=== PATIENT | female | born 1945 | race Caucasian/White ===

== ENCOUNTER 2016-08-22 15:41 | Emergency (ER) | payer MEDICARE, OTHER ==
[2016-08-22 15:54] VITALS: BP 153/69
--- NOTE | 2016-08-22 16:46 | UC ---
Head Injury HPI - HPI Summary HPI Summary: 1.5 HOURS AGO TRIPPED AND FELL BACKWARD AND HIT HEAD ON SEAT OF CHAIR LACERATION ON BACK OF HEAD. NO LOC. NO HEAD ACHE. NO NECK PAIN. NO N/V. NO BLEEDING FROM NOSE OR EARS. - History Of Current Complaint Chief Complaint: UCLaceration Stated Complaint: HEAD INJURY Time Seen by Provider: 08/22/16 16:23 Hx Obtained From: Patient, Family/Home Service Technician Mechanism Of Injury: TRIPPED AND FELL BACKWARDS; NO HISTORY OF SYNCOPE Onset/Duration: Sudden Onset, Lasting Hours, Still Present Severity Currently: Mild Severity Initially: Mild Character: Dull Aggravating Factor(s): Nothing Alleviating Factor(s): Nothing Associated Signs And Symptoms: Positive: Other - LACERATION POSTERIOR SCALP. Negative: LOC (Time In Secs./Mins/Hrs), LOC Duration Unknown, Confusion, Memory Loss, Seizure, Epistaxis, Dental Malocclusion, Neck Pain, Nausea, Vomiting - Risk Factors SDH Risk Factor: Negative - Allergies/Home Medications Allergies/Adverse Reactions: Allergies Allergy/AdvReac Type Severity Reaction Status Date / Time Cefaclor [From Ceclor] Allergy Severe Airway Verified 08/22/16 15:54 Obstruction Home Medications: Home Medications Supplements* 08/22/16 [History] PMH/Surg Hx/FS Hx/Imm Hx Previously Healthy: Yes Endocrine History Of: Reports: Diabetes Cardiovascular History Of: Reports: Hypertension Cancer History Of: Denies: Breast Cancer - Surgical History Surgical History: Yes Surgery Procedure, Year, and Place: BILAT KNEES REPLACED; right ganglion cyst; ectopic ; tonsils - Family History Known Family History: Positive: None - Social History Occupation: Retired Lives: With Family Alcohol Use: Occasionally Substance Use Type: None Smoking Status (MU): Never Smoked Tobacco Length of Time of Smoking/Using Tobacco: 10 YEARS Have You Smoked in the Last Year: No When Did the Patient Quit Smoking/Using Tobacco: 40+ YEARS - Immunization History Most Recent Influenza Vaccination: fall 2014 Most Recent Tetanus Shot: THINKS <5 YEARS ( OF 08/22/16) Most Recent Pneumonia Vaccination: may 2015 Review of Systems Constitutional: Negative Skin: Other - LACERATION OF POSTERIOR SCALP Eyes: Negative ENT: Negative Respiratory: Negative Cardiovascular: Negative Gastrointestinal: Negative Genitourinary: Negative Motor: Negative Neurovascular: Negative Musculoskeletal: Negative Neurological: Negative Psychological: Negative All Other Systems Reviewed And Are Negative: Yes Physical Exam Triage Information Reviewed: Yes Appearance: Well-Appearing, No Pain Distress, Well-Nourished Vital Signs: Initial Vital Signs Temp 97.9 F 08/22/16 15:50 Pulse 76 08/22/16 15:50 Resp 16 08/22/16 15:50 BP 153/69 08/22/16 15:50 Pulse Ox 98 08/22/16 15:50 Vital Signs Reviewed: Yes ENT: Positive: Other: - NYSTAGMUS NOTED IN LEFT EYE ON CLINICAL EXAM Dental Exam: Normal Neck exam: Normal Neck: Positive: Supple, Nontender, No Lymphadenopathy Respiratory Exam: Normal Respiratory: Positive: Chest non-tender, Lungs clear, Normal breath sounds, No respiratory distress, No accessory muscle use Cardiovascular Exam: Normal Cardiovascular: Positive: RRR, No Murmur, Pulses Normal Abdominal Exam: Normal Abdomen Description: Positive: Nontender, No Organomegaly Musculoskeletal Exam: Normal Musculoskeletal: Positive: Strength Intact, ROM Intact Neurological: Positive: Other: - NYSTAGMUS NOTED WITH LATERAL MOVEMENT OF LEFT EYE Psychological Exam: Normal Skin Exam: Normal Head Injury Course/Dx - Differential Dx/Diagnosis Differential Diagnosis/HQI/PQRI: Concussion Without LOC, Contusion, Intracranial Bleed Provider Diagnoses: HEAD INJURY - Physician Notification/Consults Discussed Patient Care With: DR. MARGO SALEH Time Discussed With Above Provider: 16:30 Instructed by Provider To: MD Will See In ED Discharge - Discharge Plan Condition: Stable Disposition: TRANS HIGHER LVL OF CARE FAC
== END 2016-08-22 16:50 | disposition short-term general hospital (02) ==
LOC: UCEAST 15:41
DX: S09.90XA Unspecified injury of head, initial encounter (principal); S01.01XA Laceration without foreign body of scalp, initial encounter; W18.09XA Striking against other object with subsequent fall, initial encounter; Y93.9 Activity, unspecified; Y92.9 Unspecified place or not applicable; Z88.1 Allergy status to other antibiotic agents; Z96.653 Presence of artificial knee joint, bilateral
CPT/HCPCS: 99212; G0463

== ENCOUNTER 2016-08-22 17:08 | Emergency (ER) | payer MEDICARE, OTHER ==
[2016-08-22 17:31] VITALS: BP 149/55
--- NOTE | 2016-08-22 18:43 | RAD ---
HISTORY: Head laceration, trauma COMPARISONS: None TECHNIQUE: Multiple contiguous axial CT scans were obtained of the head without intravenous contrast. FINDINGS: HEMORRHAGE/INFARCT: There is no hemorrhage or acute infarct. MASSES/SHIFT: There is no mass or shift. EXTRA-AXIAL SPACES: There are no extra-axial fluid collections. SULCI AND VENTRICLES: The sulci and ventricles are normal in size and position for the patient's stated age. CEREBRUM: There are no focal parenchymal abnormalities. BRAINSTEM: There are no focal parenchymal abnormalities. CEREBELLUM: There are no focal parenchymal abnormalities. VESSELS: The vessels are grossly normal. PARANASAL SINUSES: The paranasal sinuses are clear. ORBITS: The orbits are unremarkable. BONES AND SOFT TISSUE: No bone or soft tissue abnormalities are noted. OTHER: None IMPRESSION: NO ACUTE INTRACRANIAL PATHOLOGY.
--- NOTE | 2016-08-22 19:08 | ED ---
Head Injury - HPI Summary HPI Summary: 71 female presents to ED after being seen at urgent care after a head injury that happened earlier this afternoon on 08/22/16. Patient tripped over a stool and hit her head on a desk chair. She sustained a laceration. She did not lose consciousness and remembers the event. No vision changes. Was sent to ED for further imaging. Denies weakness, nausea, vomiting, confusion, headache and problems with gait. Has no pain at this time. - History Of Current Complaint Chief Complaint: EDHeadInjury Stated Complaint: HEAD LACERATION COMMING FROM [facility] Time Seen by Provider: 08/22/16 17:50 Hx Obtained From: Patient Mechanism Of Injury: Direct Blow, Fall From A Standing Position - tripped landing on buttocks hitting head on way down Onset/Duration: Started Hours Ago Onset of Pain: Immediate Severity Currently: Mild Severity Initially: Mild Pain Intensity: 3 Pain Scale Used: 0-10 Numeric Location of Head Injury: Occipital Associated Signs And Symptoms: Headache - had one after incident however does not complain of one now - Allergies/Home Medications Allergies/Adverse Reactions: Allergies Allergy/AdvReac Type Severity Reaction Status Date / Time [facility] [[facility] Allergy Severe Airway Verified 08/22/16 15:54 Obstruction PMH/Surg Hx/FS Hx/Imm Hx Endocrine/Hematology History: Reports: Hx Diabetes Cardiovascular History: Reports: Hx Hypercholesterolemia, Hx Hypertension Respiratory History: Reports: Hx Sleep Apnea - Current CPAP user., Other Respiratory Problems/Disorders - ex-smoker Musculoskeletal History: Reports: Other Musculoskeletal History - s/p bilateral TKA 2010 Denies: Hx Osteoporosis Sensory History: Reports: Hx Contacts or Glasses Opthamlomology History: Reports: Hx Contacts or Glasses - Cancer History Hx Chemotherapy: No Hx Radiation Therapy: No - Surgical History Surgery Procedure, Year, and Place: BILAT KNEES REPLACED; right ganglion cyst; ectopic ; tonsils Infectious Disease History: No Infectious Disease History: Reports: Hx Shingles - 47 yrs ago Denies: Hx Clostridium Difficile, Hx Hepatitis, Hx Human Immunodeficiency Virus (HIV), Hx of Known/Suspected MRSA, Hx Tuberculosis, Hx Known/Suspected VRE , Hx Known/Suspected VRSA, History Other Infectious Disease, Traveled Outside the [place] in Last 30 Days - Family History Known Family History: Positive: None - Social History Alcohol Use: Occasionally Substance Use Type: Reports: None Smoking Status (MU): Never Smoked Tobacco Length of Time of Smoking/Using Tobacco: 10 YEARS Have You Smoked in the Last Year: No Review of Systems Constitutional: Negative Eyes: Negative ENT: Negative Cardiovascular: Negative Respiratory: Negative Gastrointestinal: Negative Genitourinary: Negative Musculoskeletal: Negative Positive: Other - laceration scalp Positive: Headache Psychological: Normal All Other Systems Reviewed And Are Negative: Yes Physical Exam Triage Information Reviewed: Yes Vital Signs On Initial Exam: Initial Vitals Temp Pulse Resp BP Pulse Ox 97.6 F 72 16 149/55 100 08/22/16 17:26 08/22/16 17:26 08/22/16 17:26 08/22/16 17:26 08/22/16 17:26 Vital Signs Reviewed: Yes Appearance: Positive: Well-Appearing, No Pain Distress, Well-Nourished Skin: Positive: Warm, Skin Color Reflects Adequate Perfusion, Dry Head/Face: Positive: Normal Head/Face Inspection, Scalp - laceration right occiptal area about 4 cm long, linear well approximated Eyes: Positive: EOMI - questionable nystagmus noted bilaterally, CLEOPATRA, Conjunctiva Clear ENT: Positive: Normal ENT inspection, Hearing grossly normal, Pharynx normal, TMs normal Neck: Positive: Supple, Nontender Respiratory/Lung Sounds: Positive: Clear to Auscultation, Breath Sounds Present Cardiovascular: Positive: Normal, RRR, Pulses are Symmetrical in both Upper and Lower Extremities Abdomen Description: Positive: Nontender, No Organomegaly, Soft Bowel Sounds: Positive: Present Musculoskeletal: Positive: Normal, Strength/ROM Intact Neurological: Positive: Normal, Sensory/Motor Intact, Alert, Oriented to Person Place, Time, CN Intact II-III, Reflexes Intact, NV Bundle Intact Distally, Normal Gait, Heel to Toe - normal, Finger to Nose - normal, Speech Normal Psychiatric: Positive: Normal Procedures - Laceration/Wound Repair 1 Location: head - occipatl area Description: Linear Irrigated w/ Saline (ccs): 50 Closure: Thicket #__ - 4 Diagnostics - Vital Signs Vital Signs Temp Pulse Resp BP Pulse Ox 08/22/16 17:26 97.6 F 72 16 149/55 100 - Laboratory Lab Statement: Any lab studies that have been ordered have been reviewed, and results considered in the medical decision making process. - CT brain w/o CT Interpretation: No Acute Changes - NO ACUTE INTRACRANIAL PATHOLOGY. CT Interpretation Completed By: Radiologist Head Injury Course/Dx Course Of Treatment: patient is here to have further imaging. CT was obtained and negative. Scalp laceration stapled with 4 berenice. No pain at this time. Aware of worsening symptoms and concussion like symptoms to watch out for. Follow-up with PCP and have stiches removed in ~5 days. - Diagnoses Differential Diagnosis/HQI/PQRI: Cerebral Contusion, Concussion Without LOC, Contusion, Hematoma, Intracranial Bleed, Skull Fracture, Other - laceration Provider Diagnoses: Laceration and contusion of cerebral cortex Discharge - Discharge Plan Condition: Good Disposition: HOME Patient Education Materials: Scalp Contusion in Adults (ED), Laceration (ED), Staple Care (ED) Referrals: Lisa Coats MD [Primary Care Provider] - Additional Instructions: Keep the area completely dry for 24 hours. Then, you can start to gently wash around the staple site 1 to 2 times daily. Wash with cool water and soap. Clean as close to the berenice as you can. DO NOT wash or rub the berenice directly. Dab the site dry. DO NOT rub the area. Avoid using the towel directly on the berenice. See primary care doctor to have berenice removed in the next 5 days. If you develop fever/chills, headache, confusion, or bleeding please return to ED. Take Ibuprofen or Tylenol as needed for pain.
== END 2016-08-22 21:20 | disposition home or self-care (01) ==
LOC: ED 17:08
DX: S01.01XA Laceration without foreign body of scalp, initial encounter (principal); R51 Headache; W19.XXXA Unspecified fall, initial encounter; Y93.9 Activity, unspecified; Y92.9 Unspecified place or not applicable; Y99.9 Unspecified external cause status; S09.90XA Unspecified injury of head, initial encounter; W18.09XA Striking against other object with subsequent fall, initial encounter; Z88.1 Allergy status to other antibiotic agents; Z96.653 Presence of artificial knee joint, bilateral
CPT/HCPCS: 12002; 70450; 99212; 99282; G0463

== ENCOUNTER 2018-07-02 13:37 | Emergency (ER) | payer MEDICARE, OTHER ==
--- NOTE | 2018-07-02 14:45 | UC ---
Hand/Wrist HPI - HPI Summary HPI Summary: right wrist pain began last week without injury--patient fell yesterday landing on wrist wrisr now has worsening pain with extension and flex - History Of Current Complaint Chief Complaint: UCUpperExtremity Stated Complaint: WRIST INJURY Time Seen by Provider: 07/02/18 14:25 Hx Obtained From: Patient ?: No Mechanism Of Injury: fall Onset/Duration: Sudden Onset, Lasting Days - 1, Still Present Severity Initially: Moderate Severity Currently: Moderate Character Of Pain: Throbbing, Stiffness Aggravating Factor(s): Movement, Flexion, Extension Alleviating Factor(s): Rest Associated Signs And Symptoms: Positive: Swelling Related History: Dominant Hand Right - Allergies/Home Medications Allergies/Adverse Reactions: Allergies Allergy/AdvReac Type Severity Reaction Status Date / Time cefaclor [From [facility]] Allergy Difficulty Verified 07/02/18 14:49 Breathing/Wheezing PMH/Surg Hx/FS Hx/Imm Hx Previously Healthy: No Endocrine History: Diabetes Cardiovascular History: Hypertension Psychological History: Depression - Surgical History Surgical History: Yes Surgery Procedure, Year, and Place: BILAT KNEES REPLACED; right ganglion cyst; ectopic ; tonsils - Family History Known Family History: Positive: None - Social History Occupation: Retired Lives: With Family Alcohol Use: Occasionally Substance Use Type: None Smoking Status (MU): Never Smoked Tobacco Length of Time of Smoking/Using Tobacco: 10 YEARS Have You Smoked in the Last Year: No When Did the Patient Quit Smoking/Using Tobacco: 40+ YEARS - Immunization History Most Recent Influenza Vaccination: fall 2014 Most Recent Tetanus Shot: THINKS <5 YEARS ( OF 08/22/16) Most Recent Pneumonia Vaccination: may 2015 Review of Systems All Other Systems Reviewed And Are Negative: Yes Constitutional: Positive: Negative Skin: Positive: Negative Eyes: Positive: Negative ENT: Positive: Negative Respiratory: Positive: Negative Cardiovascular: Positive: Negative Gastrointestinal: Positive: Negative Genitourinary: Positive: Negative Motor: Positive: Negative Neurovascular: Positive: Negative Musculoskeletal: Positive: Negative Neurological: Positive: Negative Psychological: Positive: Negative Is Patient Immunocompromised?: No Physical Exam Triage Information Reviewed: Yes Appearance: Well-Appearing, No Pain Distress, Well-Nourished Vital Signs Reviewed: Yes Eye Exam: Normal Eyes: Positive: Conjunctiva Clear ENT Exam: Normal ENT: Positive: Normal ENT inspection, Hearing grossly normal. Negative: Trismus , Muffled voice, Hoarse voice Dental Exam: Normal Neck exam: Normal Respiratory Exam: Normal Respiratory: Positive: Chest non-tender, No respiratory distress, No accessory muscle use Cardiovascular Exam: Normal Cardiovascular: Positive: Pulses Normal, Brisk Capillary Refill Musculoskeletal Exam: Other Musculoskeletal: Positive: Strength Limited @, ROM Limited @, Edema @ - right wrist Neurological Exam: Normal Neurological: Positive: Alert, Muscle Tone Normal Psychological Exam: Normal Skin Exam: Normal Diagnostics - Radiology No standard instances Radiology Interpretation Completed By: Radiologist - soft tissue swelling, osteoarthritis Hand/Wrist Course/Dx - Course Course Of Treatment: splint, sling, ice, ibuprofen follw with ortho if not perfect in 3-4 days follow blood pressure with pcp - Differential Dx/Diagnosis Provider Diagnosis: Contusion of right wrist, initial encounter, Hypertension, Osteoarthritis Discharge - Sign-Out/Discharge Documenting (check all that apply): Patient Departure All imaging exams completed and their final reports reviewed: Yes - Discharge Plan Condition: Stable Disposition: HOME Patient Education Materials: Ibuprofen (By mouth), Contusion in Adults (ED), Hypertension (ED), R.I.C.E. Treatment (ED) Referrals: Kai Moore MD [Medical Doctor] - 4 Days Wilton Ulloa MD [Primary Care Provider] - 2 Weeks - Billing Disposition and Condition Condition: STABLE Disposition: Home
[2018-07-02 14:48] VITALS: BP 153/71
== END 2018-07-02 15:26 | disposition home or self-care (01) ==
LOC: UCEAST 13:37
DX: S60.211A Contusion of right wrist, initial encounter (principal); I10 Essential (primary) hypertension; M19.90 Unspecified osteoarthritis, unspecified site; E11.9 Type 2 diabetes mellitus without complications; Z88.1 Allergy status to other antibiotic agents; W19.XXXA Unspecified fall, initial encounter; Y92.9 Unspecified place or not applicable
CPT/HCPCS: 99213; G0463

== ENCOUNTER 2019-06-25 10:10 | Emergency (ER) | payer MEDICARE, OTHER ==
--- OUTSIDE RECORDS SUMMARY | 2019-06-25 10:55 | XMS REPORT | Continuity of Care Document ---
:1945 External Reference #:[id number] Author Name Scar Gee M.D. 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 HELPER- Onset: 07/1993 Note: Original study unavailable Family history of malignant neoplasm of Zan Barrientos MD Onset: 2004 gastrointestinal tract Note: brother of colon cancer Diabetes mellitus Zan Barrientos MD Onset: 08/20/2003 Note: visit Hx shows AODM in 2003 Dr Meyers; gestational at age 32 History of adenomatous polyp of colon Zan Barrientos MD Onset: 11/18/2007 Note: 5mm TA in descending Social History Type Date Description Comments Sex Unknown Tobacco Use Start: Unknown Quit in 1975 ETOH Use Rarely consumes wine Recreational Drug Use Denies Drug Use Tobacco Use Start: Unknown End: Patient is a former smoker Unknown Tobacco Use Start: Unknown Heavy tobacco smoker (more than 10 cigarettes/day) Smoking Status Reviewed: 05/29/19 Heavy tobacco smoker (more than 10 cigarettes/day) Exercise Type/Frequency Does not exercise Allergies, Adverse Reactions, Alerts Active Allergies Reaction Severity Comments Date Rebecca Nunez 12/25/2014 Medications Active Medications SIG Qnty Indications Ordering Provider Date Omeprazole 1 by mouth every 30caps Zan Barrientos, 12/16/[address] Fluoxetine HCL 1 by mouth every Other Ordering 12/06/2018 20mg day Provider Tablets Metformin HCL two tabs bid Unknown 12/24/2014 500mg Atorvastatin Calcium 1 by mouth every Unknown 40mg day Tablets Garlic 1 tab by mouth Unknown daily Lisinopril 1 by mouth every Unknown 40mg Tablets day Aspirin Adult Low Dose 1 by mouth every Unknown day 81mg Tablets DR Vipul 1 po qd Unknown Co Q 10 1 by mouth every Unknown 60mg Capsules day Cataplex 2 tablets by Unknown mouth twice daily (sometimes) Vitamin D3 1 po qd Unknown 5000Iu Immunizations Description No Information Available Vital Signs Date Vital Result Comment 05/29/2019 2:44pm Height 62 inches 5'2" Weight 224.00 lb with shoes Heart Rate 76 /min BP Systolic Sitting 108 mmHg Rue large cuff BP Diastolic Sitting 58 mmHg Rue large cuff Respiratory Rate 13 /min BMI (Body Mass Index) 41.0 kg/m2 Ejection Fraction 55-60% ECHO 04/29/2017 12/06/2018 11:17am Height 62 inches 5'2" Weight 228.12 lb Heart Rate 68 /min BP Systolic Sitting 114 mmHg BP Diastolic Sitting 62 mmHg Respiratory Rate 20 /min Body Temperature 97.0 F BMI (Body Mass Index) 41.7 kg/m2 Results Test Acquired Date Facility Test Result H/L Range Note Laboratory test 12/16/2018 [facility] Clotest SEE RESULT [address] [place] [address] [phone] Laboratory test 12/16/2018 [facility] Surgical SEE RESULT [address] [address] [phone] 1 SEE RESULT BELOW Name: GAGE SHERMAN : [address]: Zan Barrientos MD Acct: [id number] Unit: [id number] AGE: 73 Location: ENDO Re12/16/18 SEX: F Status: REG REF SPEC: [id number] LUISITO: 12/16/18 [facility] DR: Zan Barrientos MD REQ: [id number] RECD: 12/16/18 STATUS: MARY TABARES DR: Wilton Ulloa MD PC _ SOURCE: GAS ANTRUM SPDESC: ORDERED: Clotest Procedure Result Reported Site Clotest Final 12/17/18- 0801 ML Clotest Negative * ML - Main Lab . END OF REPORT DEPARTMENT OF PATHOLOGY, [address] [place] [address] Fabrice Fink M.D. Director STEPHANIE # [id number] 2 SEE RESULT BELOW Name: GAGE SHERMAN : [address]: Zan Barrientos MD Acct: [id number] Unit: [id number] AGE: 73 Location: ENDO Re12/16/18 SEX: F Status: DEP REF SPEC: [id number] LUISITO: 12/16/18-6313 [facility] DR: Zan Barrientos MD REQ: [id number] RECD: 12/16/184951 STATUS: NEHAL TABARES DR: Wilton Ulloa MD PC _ ORDERED: LEVEL 4/2, IMMUNO-FIRST ADDENDUM An H. pylori immunohistochemical stain, with appropriately reacting controls , was performed on sections cut from specimen one and is negative for Helicobacter organisms. Addendum Signed (signature on file) Lisa Hoff MD 1034 FINAL DIAGNOSIS 1. Duodenum, third portion, biopsy: -- Ulcerated acutely inflamed small intestinal mucosa. -- No evidence of viral cytopathic effect or parasites; see comment. 2. Stomach, antrum, biopsy: -- Antral and body-type gastric mucosa with reactive chemical gastropathy. -- No evidence of Helicobacter organisms. COMMENT: An H. pylori immunohistochemical stain is pending for specimen 1 and the results will be reported in an addendum. CLINICAL HISTORY Abdominal pain; dysphagia; diet - weight watchers CONTINUED ON NEXT PAGE DEPARTMENT OF PATHOLOGY, [address] [place] [address] Fabrice Fink M.D. Director [facility] # [id number] RUN DATE: 12/21/18 [facility] LAB LIVE PAGE 2 Patient: JOSICAMILLEE Alonzo [id number] (Continued) POST-OPERATIVE DIAGNOSIS (Continued) POST-OPERATIVE DIAGNOSIS EGD: larynx - NGD; esophagus - normal esophagogastric snug at 38 cm; stomach - minimal gastritis antrum biopsy (2) and KIKA test; duodenum - exudate in bulb; small superficial ulcers in third portion; conclusions: gastritis; duodenal ulcers GROSS DESCRIPTION 1. The specimen is received in formalin labeled, Third Portion Duodenum Biopsies, and consists of a 0.8 x 0.4 x 0.2 cm aggregate of mena irregular soft tissue fragments which is submitted entirely in one cassette. 2. The specimen is received in formalin labeled, Gastric Antrum Biopsies, and consists of two mena irregular soft tissue fragments measuring 0.4 x 0.3 x 0.2 cm and 0.6 x 0.3 x 0.1 cm which are submitted entirely in one cassette. Signed by and Reported on: Lisa Hoff MD 12/20/18 1143 END OF REPORT DEPARTMENT OF PATHOLOGY, [address] [place] [address] Fabrice Fink M.D. Director [facility] # [id number] Procedures Date Code Description Status 05/29/2019 95536 EKG Tracing & Interpretation Completed 03/02/2019 346821535 Diabetic Retinal Eye Exam Completed 12/16/2018 21332 Endoscopy Upper GI Biopsy Completed 12/25/2016 [id number] Colonoscopy Completed 11/12/2011 [id number] Colonoscopy Completed 11/11/2007 [id number] Colonoscopy Completed Medical Devices Description No Information Available Encounters Type Date Location Provider Dx Diagnosis Office Visit 12/06/2018 [facility] Ivy Guerrero, R13.10 Dysphagia, 11:00a KIER TENDER unspecified R07.0 Pain in throat K21.0 Gastro-esophageal reflux disease with esophagitis Assessments Date Code Description Provider 05/29/2019 E78.00 Pure hypercholesterolemia, unspecified Scar Gee M.D. 05/29/2019 I34.0 Nonrheumatic mitral (valve) insufficiency Scar Gee M.D. 05/29/2019 I10 Essential (primary) hypertension Scar Gee M.D. 05/29/2019 R94.31 Abnormal electrocardiogram [ECG] [EKG] Scar Gee M.D. 12/16/2018 K26.9 Duodenal ulcer, unsp as acute or chronic, Zan Barrientos MD w/o hemor or perf 12/16/2018 K29.70 Gastritis, unspecified, without bleeding Zan Barrientos MD 12/16/2018 R13.10 Dysphagia, unspecified Zan Barrientos MD 12/06/2018 R13.10 Dysphagia, unspecified Ivy Guerrero NP 12/06/2018 R07.0 Pain in throat Ivy Guerrero, TON 12/06/2018 K21.0 Gastro-esophageal reflux disease with Ivy Guerrero NP esophagitis Plan of Treatment 05/29/2019 - Scar Gee M.D.E78.00 Pure hypercholesterolemia, kvcmerbdzjhO63.0 Nonrheumatic mitral (valve) [id number] Essential (primary ) irafxdejpzgiD23.31 Abnormal electrocardiogram [ECG] [EKG]Follow up:ov 1 year Functional Status Description No Information Available Mental Status Description No Information Available Referrals Description No Information Available
--- NOTE | 2019-06-25 10:58 | UC ---
Complaint Female HPI - HPI Summary HPI Summary: 74 yo female presents with UTI symptoms. She tells me that for the last 2 days has had urinary burning and frequency. Has not had a UTI in many years. Denies fever, chills, back pain, abdominal pain, n/v. - History Of Current Complaint Stated Complaint: URINARY ISSUE Time Seen by Provider: 06/25/19 10:58 Hx Obtained From: Patient Hx Last Menstrual Period: post menopause Onset/Duration: Sudden Onset Timing: Constant Severity Initially: Mild Severity Currently: Moderate Pain Intensity: 4 Pain Scale Used: 0-10 Numeric - Allergies/Home Medications Allergies/Adverse Reactions: Allergies Allergy/AdvReac Type Severity Reaction Status Date / Time cefaclor [From [facility]] Allergy Difficulty Verified 12/07/18 14:10 Breathing/Wheezing PMH/Surg Hx/FS Hx/Imm Hx Endocrine History: Diabetes, Dyslipidemia Cardiovascular History: Hypertension Psychological History: Anxiety, Depression - Surgical History Surgical History: Yes Surgery Procedure, Year, and Place: BILAT KNEES REPLACED; right ganglion cyst; ectopic ; tonsils - Family History Known Family History: Positive: None - Social History Lives: With Family Alcohol Use: Occasionally Substance Use Type: None Smoking Status (MU): Never Smoked Tobacco Length of Time of Smoking/Using Tobacco: 10 YEARS Have You Smoked in the Last Year: No When Did the Patient Quit Smoking/Using Tobacco: 40+ YEARS - Immunization History Most Recent Influenza Vaccination: fall 2014 Most Recent Tetanus Shot: THINKS <5 YEARS ( OF 08/22/16) Most Recent Pneumonia Vaccination: may 2015 Review of Systems All Other Systems Reviewed And Are Negative: No Constitutional: Positive: Negative Skin: Positive: Negative Respiratory: Positive: Negative Cardiovascular: Positive: Negative Genitourinary: Positive: Dysuria Neurological: Positive: Negative Psychological: Positive: Negative Physical Exam - Summary Physical Exam Summary: GENERAL: NAD. WDWN. No pain distress. SKIN: No rashes, sores, lesions, or open wounds. NECK: Supple. Nontender. No lymphadenopathy. CHEST: CTAB. No r/r/w. No accessory muscle use. Breathing comfortably and in no distress. CV: RRR. Pulses intact. Cap refill <2seconds ABDOMEN: Soft. NTTP. No CVA tenderness. Bowel sounds present NEURO: Alert. PSYCH: Age appropriate behavior. Triage Information Reviewed: Yes Vital Signs: Vital Signs: Temp Pulse Resp BP Pulse Ox 98.6 F 75 16 98/72 99 06/25/19 10:58 06/25/19 10:58 06/25/19 10:58 06/25/19 10:58 06/25/19 10:58 Laboratory Tests 06/25/19 11:22 POC Urine Color Yellow POC Urine Clarity Cloudy POC Urine pH 5.5 POC Ur Specif [place] 1.020 POC Urine Protein 1+ A POC Ur Glucose (UA) Negative POC Urine Ketones Negative POC Urine Blood 1+ A POC Urine Nitrite Negative POC Urine Bilirubin Negative POC Urine Urobilinogen 0.2 POC U Leukocyte Esteras 3+ A Vital Signs Reviewed: Yes Complaint Female Dx - Course Course Of Treatment: UA positive. Will send for culture and treat - Differential Dx/Diagnosis Provider Diagnosis: UTI (urinary tract infection) Discharge ED - Sign-Out/Discharge Documenting (check all that apply): Patient Departure All imaging exams completed and their final reports reviewed: No Studies - Discharge Plan Condition: Stable Disposition: HOME Prescriptions: Nitrofurantoin Monohyd/M-Cryst [Macrobid 100 mg Capsule] 100 mg PO BID #10 cap Patient Education Materials: Urinary Tract Infection in Women (ED) Referrals: Wilton Ulloa MD [Primary Care Provider] - Additional Instructions: If you develop a fever, shortness of breath, chest pain, new or worsening symptoms - please call your PCP or go to the ED immediately. - Billing Disposition and Condition Condition: STABLE Disposition: Home
[2019-06-25 11:14] VITALS: BP 98/72
--- NOTE | 2019-06-27 15:32 | UC ---
- Progress Note Progress Note: Urine culture shows Proteus, and is resistant to the nitrofurantoin she was given for treatment of UTI. I have sent in an rx for augmentin for her, which will treat the infection adequately. There is a VERY small risk of reaction in individuals who have cephalosporin allergies. However, it is a safer choice than other alternatives on the list which can interact with her meds. Course/Dx - Diagnoses Provider Diagnoses: UTI (urinary tract infection) Discharge ED - Sign-Out/Discharge Documenting (check all that apply): Post-Discharge Follow Up All imaging exams completed and their final reports reviewed: No Studies - Discharge Plan Condition: Stable Disposition: HOME Prescriptions: Amoxicillin/Clavulanate TAB* [Augmentin TAB 875*] 875 mg PO BID #10 tab Nitrofurantoin Monohyd/M-Cryst [Macrobid 100 mg Capsule] 100 mg PO BID #10 cap Patient Education Materials: Urinary Tract Infection in Women (ED) Referrals: Wilton Ulloa MD [Primary Care Provider] - Additional Instructions: If you develop a fever, shortness of breath, chest pain, new or worsening symptoms - please call your PCP or go to the ED immediately. - Billing Disposition and Condition Condition: STABLE Disposition: Home
== END 2019-06-25 11:35 | disposition home or self-care (01) ==
LOC: UCEAST 10:10
DX: N39.0 Urinary tract infection, site not specified (principal); E11.9 Type 2 diabetes mellitus without complications; I10 Essential (primary) hypertension; Z88.1 Allergy status to other antibiotic agents
CPT/HCPCS: 81003; 87077; 87086; 87186; 99212; G0463